=== PATIENT | female | born 1965 | race Caucasian/White ===

== ENCOUNTER → 2017-02-13 | Outpatient (CLI) | payer OTHER | LOC: CIMAGING 13:19 | PROVIDERS: ATTEND Family Medicine | DX: N63 Unspecified lump in breast (principal) | CPT/HCPCS: 76641-PO; G0204 ==

== ENCOUNTER → 2018-05-31 | Outpatient (CLI) | payer OTHER | LOC: CIMAGING 12:23 | DX: Z12.31 Encounter for screening mammogram for malignant neoplasm of breast (principal); Z80.3 Family history of malignant neoplasm of breast ==